=== PATIENT | male | born 1995 | race African-American/Black ===

== ENCOUNTER 2019-02-09 15:43 | Emergency (ER) | payer MEDICAID ==
[~2019-02-09] VITALS: Ht 177.8 cm; Wt 75.0 kg
[2019-02-09] MEDS ORDERED: HYDROCODONE/ACETAMINOPHEN 5/325MG TABLET PO ONE (17:45)
[2019-02-09] MEDS ORDERED: ACETAMINOPHEN 325MG TABLET PO ONE (19:15)
[2019-02-09 19:31] VITALS: BP 121/83
== END 2019-02-09 19:33 | disposition home or self-care (01) ==
LOC: ER 15:43
DX: S51.012A Laceration without foreign body of left elbow, initial encounter (principal); X99.9XXA Assault by unspecified sharp object, initial encounter; Y93.89 Activity, other specified; Y92.410 Unspecified street and highway as the place of occurrence of the external cause
CPT/HCPCS: 73080; 73090; 99283; A4217

== ENCOUNTER 2019-03-15 10:33 | Emergency (ER) | payer MEDICAID ==
[~2019-03-15] VITALS: Ht 175.3 cm; Wt 70.0 kg
[2019-03-15] MEDS ORDERED: HYDROCODONE/ACETAMINOPHEN 5/325MG TABLET PO ONE (12:30)
[2019-03-15] MEDS ORDERED: LIDOCAINE HCL/PF 1% 10 MG/ML 5ML VIAL IJ ONE (12:30)
[2019-03-15] MEDS ORDERED: TETANUS, DIPHTHERIA, PERTUSSIS VAC/PF 0.5ML (>7YR OLD) IM ONE (12:30)
[2019-03-15] MEDS ORDERED: BACITRACIN ZINC OINT UDPKT TOP ONE (12:30)
[2019-03-15 14:15] VITALS: BP 121/77
== END 2019-03-15 14:33 | disposition home or self-care (01) ==
LOC: ER 10:33
DX: S61.412A Laceration without foreign body of left hand, initial encounter (principal); F17.200 Nicotine dependence, unspecified, uncomplicated; F12.10 Cannabis abuse, uncomplicated; W26.8XXA Contact with other sharp object(s), not elsewhere classified, initial encounter; Y93.89 Activity, other specified; Y92.89 Other specified places as the place of occurrence of the external cause; Y99.8 Other external cause status
CPT/HCPCS: 12002; 73130; 90471; 90715; 99283; A4217; J3490; Z7610

== ENCOUNTER 2019-03-16 20:51 | Emergency (ER) | payer MEDICAID ==
[~2019-03-16] VITALS: Ht 177.8 cm; Wt 75.0 kg
[2019-03-16] MEDS ORDERED: HYDROCODONE/ACETAMINOPHEN 5/325MG TABLET PO ONE (21:45)
[2019-03-16] MEDS ORDERED: BACITRACIN ZINC OINT UDPKT TOP ONE (22:00)
[2019-03-16 22:57] VITALS: BP 128/76
== END 2019-03-16 22:58 | disposition home or self-care (01) ==
LOC: ER 20:51
DX: Z48.00 Encounter for change or removal of nonsurgical wound dressing (principal); M79.642 Pain in left hand
CPT/HCPCS: 99283

== ENCOUNTER 2019-03-18 13:14 | Emergency (ER) | payer MEDICAID ==
[~2019-03-18] VITALS: Ht 175.3 cm; Wt 63.0 kg
[2019-03-18 14:50] VITALS: BP 138/79
== END 2019-03-18 14:55 | disposition home or self-care (01) ==
LOC: ER 13:14
DX: S61.211D Laceration without foreign body of left index finger without damage to nail, subsequent encounter (principal); X58.XXXD Exposure to other specified factors, subsequent encounter; F12.10 Cannabis abuse, uncomplicated
CPT/HCPCS: 99281

== ENCOUNTER 2019-03-21 12:11 | Emergency (ER) | payer MEDICAID ==
[~2019-03-21] VITALS: Ht 172.7 cm; Wt 70.0 kg
[2019-03-21 13:02] VITALS: BP 128/75
== END 2019-03-21 14:57 | disposition home or self-care (01) ==
LOC: ER 12:11
DX: Z48.00 Encounter for change or removal of nonsurgical wound dressing (principal)
CPT/HCPCS: 99281

== ENCOUNTER 2021-04-04 03:23 | Emergency (ER) | payer SELFPAY ==
[~2021-04-04] VITALS: Ht 177.8 cm; Wt 68.0 kg
[2021-04-04] MEDS ORDERED: HALOPERIDOL LACTATE 5MG/ML VIAL IM SCH (05:48)
[2021-04-04] MEDS ORDERED: NALO4SPR BOTHNSTRLS (06:40)
[2021-04-04] MEDS ORDERED: KETOROLAC 60MG/2ML VIAL IM ONE (06:45)
[2021-04-04 06:59] LABS: BASOPHILS % 0.3 % (0.0-2.0); EOSINOPHILS % 0.1 % (0.0-5.0); HEMATOCRIT. 38.8 % (42.0-52.0); HEMOGLOBIN. 12.9 g/dL (14.0-18.0); LYMPHOCYTES % 9.7 % (20.0-50.0); MEAN CORPUSCULAR HEMOGLOBIN 29.5 pg (28.0-32.0); MEAN CORPUSCULAR VOLUME 88.9 fL (80.0-94.0); MEAN PLATELET VOLUME 10.6 fl (7.4-10.4); MONOCYTES % 8.6 % (2.0-8.0); NEUTROPHILS % 81.3 % (40.0-76.0); PLATELET 229 x1000/uL (130-400); RED BLOOD CELL COUNT 4.37 mill/uL (4.7-6.1); RED CELL DISTRIBUTION WIDTH 13.3 % (11.6-14.6)
[2021-04-04 07:04] LABS: CHLORIDE 104 mEq/L (98-107); ETHANOL BLOOD < 10 mg/dL
[2021-04-04 07:11] LABS: METHADONE URINE SCREEN NEGATIVE (NEGATIVE); OPIATES URINE SCREEN NEGATIVE (NEGATIVE)
[2021-04-04 07:13] LABS: *AMPHETAMINES SCREEN URINE PRESUMTIVE POSITIVE (NEGATIVE); *BARBITURATES SCREEN URINE NEGATIVE (NEGATIVE); *BENZODIAZEPINES SCREEN URINE NEGATIVE (NEGATIVE); *COCAINE SCREEN URINE NEGATIVE (NEGATIVE); CANNABINOID URINE SCREEN PRESUMTIVE POSITIVE (NEGATIVE); PHENCYCLIDINE URINE SCREEN NEGATIVE (NEGATIVE)
== END 2021-04-04 07:14 | disposition home or self-care (01) ==
LOC: ER 03:23
DX: R41.82 Altered mental status, unspecified (principal); R45.1 Restlessness and agitation; F15.10 Other stimulant abuse, uncomplicated; F16.10 Hallucinogen abuse, uncomplicated; F12.10 Cannabis abuse, uncomplicated; Z78.1 Physical restraint status
CPT/HCPCS: 36415; 80053; 80305; 80307; 80320; 80329; 85025; 99283; J1630; G0480

== ENCOUNTER 2021-05-05 04:24 | Emergency (ER) | payer SELFPAY ==
[~2021-05-05] VITALS: Ht 172.7 cm; Wt 68.0 kg
[~2021-05-05 04:24] MED LIST: NALO4SPR BOTHNSTRLS
[2021-05-05 04:30] VITALS: BP 126/80
== END 2021-05-05 05:44 | disposition left against medical advice (07) ==
LOC: ER 04:24
DX: Z53.21 Procedure and treatment not carried out due to patient leaving prior to being seen by health care provider (principal)

== ENCOUNTER 2021-06-06 03:58 | Emergency (ER) | payer SELFPAY ==
[~2021-06-06] VITALS: Ht 177.8 cm; Wt 70.2 kg
[2021-06-06 04:29] VITALS: BP 122/74
== END 2021-06-06 04:52 | disposition left against medical advice (07) ==
LOC: ER 03:58
DX: R07.89 Other chest pain (principal); Z59.00 Homelessness unspecified; F12.90 Cannabis use, unspecified, uncomplicated; Z87.828 Personal history of other (healed) physical injury and trauma; Z87.820 Personal history of traumatic brain injury
CPT/HCPCS: 99281

== ENCOUNTER 2021-06-06 14:19 | Emergency (ER) | payer SELFPAY ==
[~2021-06-06] VITALS: Ht 177.8 cm; Wt 85.0 kg
[2021-06-06] MEDS ORDERED: SODIUM CHLORIDE 0.9% 1,000 ML IV ONE (18:00)
[2021-06-06 20:00] VITALS: BP 122/75
[2021-06-06 20:39] LABS: CLARITY URINE CLEAR (CLEAR); COLOR URINE DARK YELLOW (YELLOW); KETONES URINE 1+ (NEGATIVE); LEUKOCYTE ESTERASE URINE 2+ (NEGATIVE); NITRITE URINE NEGATIVE (NEGATIVE); OCCULT BLOOD URINE NEGATIVE (NEGATIVE); PROTEIN URINE 1+ (NEGATIVE)
[2021-06-06 20:55] LABS: *AMPHETAMINES SCREEN URINE NEGATIVE (NEGATIVE); *BARBITURATES SCREEN URINE NEGATIVE (NEGATIVE); PHENCYCLIDINE URINE SCREEN NEGATIVE (NEGATIVE)
[2021-06-06 20:56] LABS: *BENZODIAZEPINES SCREEN URINE PRESUMTIVE POSITIVE (NEGATIVE); *COCAINE SCREEN URINE NEGATIVE (NEGATIVE); CANNABINOID URINE SCREEN PRESUMTIVE POSITIVE (NEGATIVE); METHADONE URINE SCREEN NEGATIVE (NEGATIVE); OPIATES URINE SCREEN NEGATIVE (NEGATIVE)
== END 2021-06-06 20:41 | disposition home or self-care (01) ==
LOC: ER 14:19
DX: R41.82 Altered mental status, unspecified (principal); R45.1 Restlessness and agitation; F13.10 Sedative, hypnotic or anxiolytic abuse, uncomplicated; F12.10 Cannabis abuse, uncomplicated
CPT/HCPCS: 80305; 81003; 87086; 93005; 99284; J7030